=== PATIENT | female | born 1955 | race Asian ===

== ENCOUNTER 2025-05-24 09:35 | Outpatient (CLI) | payer MEDICARE, OTHER | END 2025-05-24 09:36 | disposition home or self-care (01) | LOC: CSHMAMMO 09:35 | PROVIDERS: ATTEND Family Medicine | DX: Z12.31 Encounter for screening mammogram for malignant neoplasm of breast (principal); Z13.820 Encounter for screening for osteoporosis; Z78.0 Asymptomatic menopausal state; M85.88 Other specified disorders of bone density and structure, other site | CPT/HCPCS: 77063; 77067; 77080 ==